=== PATIENT | male | born 1965 | race African-American/Black ===

== ENCOUNTER 2016-12-17 23:09 | Emergency (ER) | payer OTHER ==
[2016-12-17 23:29] VITALS: BP 137/84; PULSE 80; TEMP 98; BMI 25.1
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
[2016-12-18] MEDS ORDERED: IBUPROFEN 400 MG TABLET (FP) PO ONE ×2 (02:07→02:19)
== END 2016-12-18 03:31 | disposition home or self-care (01) ==
LOC: JER 23:09
DX: S01.511A Laceration without foreign body of lip, initial encounter (principal); Y04.2XXA Assault by strike against or bumped into by another person, initial encounter; Y93.89 Activity, other specified; Y92.9 Unspecified place or not applicable
CPT/HCPCS: 99281-25